=== PATIENT | female | born 1995 | race African-American/Black ===

== ENCOUNTER 2016-10-07 08:47 | Emergency (ER) | payer OTHER ==
[~2016-10-07] VITALS: Ht 162.6 cm; Wt 75.0 kg
[2016-10-07 09:18] LABS: HEMATOCRIT 41.9 % (36.0-46.0); MCH 27.5 PG (29.0-34.0); MCHC 32.5 G/DL (30.0-36.0); MCV 84.6 FL (83-99); PLATELET COUNT 220 K/uL (156-360); RBC DIS.WIDTH-CV 13.5 % (11.8-14.6); RBC DIS.WIDTH-SD 41.8 % (39-53); RED BLOOD COUNT 4.95 M/uL (3.80-5.20); WHITE BLOOD COUNT 3.3 K/uL (4.1-10.2)
[2016-10-07 09:29] LABS: CHLORIDE 104 mEq/L (99-109); POTASSIUM 4.7 mEq/L (3.7-5.4); SODIUM 139 mEq/L (136-147)
[2016-10-07 09:31] LABS: GLUCOSE 84 mg/dL (70-99)
[2016-10-07 09:32] LABS: ANION GAP 9 MEQ/L (2-14)
[2016-10-07 09:33] LABS: TOTAL BILIRUBIN 0.2 mg/dL (0.0-1.0)
[2016-10-07 09:34] LABS: ALKALINE PHOSPHATASE 57 IU/L (3-129)
[2016-10-07 09:35] LABS: GFR ESTIMATE (CALCULATED) > 59 mL/min/
[2016-10-07 09:36] LABS: UREA NITROGEN (BUN) 9 mg/dL (9-23)
[2016-10-07 09:43] LABS: QUANTITATIVE HCG < 4.0 MIU/ML
[2016-10-07] MEDS ORDERED: FLAGYL500 MG PO (11:14)
[2016-10-07] MEDS ORDERED: ANUSOL HC,ANUCO25 MG PR (11:14)
[2016-10-07] MEDS ORDERED: CIPRO500 MG PO (11:14)
[2016-10-07 11:35] VITALS: BP 142/95
== END 2016-10-07 11:37 | disposition home or self-care (01) ==
LOC: EME 08:47
DX: K62.5 Hemorrhage of anus and rectum (principal); L73.8 Other specified follicular disorders; K59.00 Constipation, unspecified; F17.200 Nicotine dependence, unspecified, uncomplicated
CPT/HCPCS: 80053; 81003; 84702; 85027; 99281; 99283